=== PATIENT | female | born 1990 | race Caucasian/White ===

== ENCOUNTER 2021-12-08 09:00 | Emergency (ER) | payer MEDICAID ==
[~2021-12-08] VITALS: Ht 154.9 cm; Wt 61.0 kg
[2021-12-08 09:06] VITALS: BP 139/94
== END 2021-12-08 14:45 | disposition left against medical advice (07) ==
LOC: ER 09:00
DX: Z53.21 Procedure and treatment not carried out due to patient leaving prior to being seen by health care provider (principal)